=== PATIENT | male | born 1995 | race Caucasian/White ===

== ENCOUNTER 2018-08-24 08:03 | Emergency (ER) | payer OTHER ==
[2018-08-24] MEDS ORDERED: IBUPROFEN 600 MG TAB PO ONE (08:15)
--- NOTE | 2018-08-24 08:22 | EDPHY ---
H & P Time Seen by Provider: 08/24/18 08:11 HPI/ROS: CHIEF COMPLAINT: Left foot injury HISTORY OF PRESENT ILLNESS: Rolled it last night at 9:00 p.m.. Complains of pain in his left lateral foot but not in the ankle. Pain mild at rest but severe with any attempt to walk, can't walk on it. No knee or leg injuries. REVIEW OF SYSTEMS: Bruising but no laceration PAST MEDICAL HISTORY: Tonsillectomy, appendectomy, anxiety and depression. Social history: Smoker General Appearance: Alert and conversant, cooperative. Normal motor sensory and dorsalis pedis pulse in the foot. Lateral ecchymosis and swelling and tenderness over the base of the 5th metatarsal. Achilles and calcaneus nontender. No laceration. Medial and lateral malleoli are nontender, tibia and fibula nontender, lower leg compartments are soft. Emergency Department course/MDM: Ice, ibuprofen 600, foot x-ray on the left side. X-rays reviewed with the patient on the computer. Procedure: Splint placement. A left leg posterior Ortho Glass splint was applied. After application of the splint I returned and re-examined the patient. The splint was adequately immobilizing the joint and distal to the splint the patient's circulation and sensation was intact. Smoking Status: Current some day smoker Constitutional: Initial Vital Signs Temperature (C) 36.3 C 08/24/18 08:08 Heart Rate 102 H 08/24/18 08:08 Respiratory Rate 18 08/24/18 08:08 Blood Pressure 146/70 H 08/24/18 08:08 O2 Sat (%) 94 08/24/18 08:08 O2 Delivery Mode Room Air Allergies/Adverse Reactions: amoxicillin Allergy (Verified 08/24/18 08:08) Home Medications: Medication Instructions Recorded Sertraline HCl [Zoloft] 50 mg PO DAILY 05/18/15 clonazePAM [KlonOPIN] 0.5 mg PO DAILY PRN 05/18/15 clonazePAM [klonoPIN (*)] 1 mg PO TID PRN #12 tab 05/21/15 lamoTRIgine [LaMICtal] 25 mg PO DAILY #30 tab 05/21/15 MDM/Departure - MDM Imaging Results: Imaging Impressions Foot X-Ray 08/24/18 08:15 Impression: Fifth metatarsal base fracture consistent with peroneus brevis avulsion. Imaging: I viewed and interpreted images myself Medications Given: Discontinued Medications Acetaminophen (Tylenol) 1,000 mg PO EDNOW ONE Stop: 08/24/18 09:11 Last Admin: 08/24/18 09:11 Dose: 1,000 mg Ibuprofen (Motrin) 600 mg PO EDNOW ONE Stop: 08/24/18 08:16 Last Admin: 08/24/18 08:19 Dose: 600 mg - Depart Disposition: Home, Routine, Self-Care Clinical Impression: Fracture of fifth metatarsal bone of left foot Qualifiers: Encounter type: initial encounter Fracture type: closed Fracture alignment: nondisplaced Qualified Code(s): S92.355A - Nondisplaced fracture of fifth metatarsal bone, left foot, initial encounter for closed fracture Condition: Good Instructions: Foot Fracture in Adults (ED) Additional Instructions: Use crutches, nonweightbearing, follow-up with Orthopedics later this week in the office. Referrals: Nando Owens MD [Medical Doctor] - As per Instructions
[2018-08-24] MEDS ORDERED: ACETAMINOPHEN 500 MG TAB PO ONE (09:10)
[2018-08-24] MEDS ORDERED: ACETAMINOPHEN 500 MG TAB ONE (09:11)
[2018-08-24 09:21] VITALS: BP 110/74
== END 2018-08-24 09:30 | disposition home or self-care (01) ==
PROC: 2W3RX1Z Immobilization of Left Lower Leg using Splint (ICD-10-PCS; principal; 2018-08-24)
DX: S92.352A Displaced fracture of fifth metatarsal bone, left foot, initial encounter for closed fracture (principal); X50.1XXA Overexertion from prolonged static or awkward postures, initial encounter; Y92.9 Unspecified place or not applicable; Y93.9 Activity, unspecified; Y99.9 Unspecified external cause status; Z87.891 Personal history of nicotine dependence

== ENCOUNTER 2018-10-26 19:02 | Emergency (ER) | payer OTHER ==
--- NOTE | 2018-10-26 20:10 | EDPHY ---
General - History Smoking Status: Current some day smoker Time Seen by Provider: 10/26/18 20:09 Narrative: CLINICAL IMPRESSION: Skateboard accident, abrasions of multiple sites, left hand pain, left great toe pain ASSESSMENT/PLAN: Patient is a 23-year-old male who was traveling approximately 15-20 when he lost control on his skateboard causing him to fall, presents with multiple complaints. On initial examination the patient is shaking, very anxious and mildly diaphoretic and tachycardic. Patient noted to have multiple abrasions lateral and inferior to left eye with surrounding ecchymosis in orbital tenderness. His neurological exam is grossly normal with no focal deficit. His lungs were clear to auscultation bilaterally, oxygen saturation was 96% on room air, abrasions in tenderness noted across anterior chest. His abdomen was soft tender in the left lower quadrant, large abrasion overlying the left hip. CT head revealed no evidence of skull fracture, facial fracture or intracranial hemorrhage. CT chest revealed mild compression fractures of T3 through 5, he was nontender at this site and I suspect these are old. CT abdomen and pelvis were negative for acute abnormalities. Bilateral hand x-rays with no evidence of acute fracture, left foot with base of the 5th metatarsal fracture. Overall the patient had a very reassuring workup in the emergency department. After pain control, the patient was much more comfortable appearing in his heart rate normalized into the 80s. There were no findings to suggest traumatic head injury, traumatic intrathoracic or intra-abdominal injury, pelvic fracture, long bone fracture, compartment syndrome or neurovascular compromise. Patient with no midline spinal tenderness to palpation, there were no clinical findings to suggest traumatic spinal injury or cauda equina syndrome. On secondary assessment patient only complains of left palm pain and left great toe pain, no additional injuries were identified and he remains neurovascularly intact. The fracture noted at his 5th left metatarsal occurred 1 month prior, denies any significant pain at this location. History and physical examination is consistent with abrasions of multiple sites, left hand pain and left great toe pain. On repeat examination and prior to discharge he was able to ambulate without difficulty, he was very reassured by his workup in reports he is feeling much better. He was placed in a Velcro wrist splint, he is well established with his orthopedic surgeon and will call to schedule follow -up for repeat examination. Patient does not have a primary care provider, I have provided a referral for him to establish care. Return precautions were discussed-patient to return to the emergency Department for significantly worsening or uncontrolled pain, midline neck or back pain, chest pain, shortness of breath, abdominal pain or for any other concerning symptom. Patient verbalizes understanding and he is in agreement with plan. DIFFERENTIAL DX: Head injury including but not limited to concussion, skull fracture, intraparenchymal contusion, subarachnoid, subdural and epidural hematoma. Other differential diagnoses considered include but not limited to and in no particular order facial fracture, long bone fracture, intrathoracic traumatic injury, intra-abdominal traumatic injury, compartment syndrome ED PROCEDURES: Procedure: Splint placement. A Velcro wrist splint was applied. After application of the splint I returned and re-examined the patient. The splint was adequately immobilizing the joint and distal to the splint the patient's circulation and sensation was intact. ED COURSE: 2031: Discussed with Dr. Vila 2130: On repeat examination the patient is much more comfortable appearing, he reports that he is feeling better. Still complains of mild left lower quadrant and left hip pain. 2132: X-rays reviewed, bilateral hands without evidence of a fracture. Left foot with base of the 5th metatarsal fracture- this fracture is actually old upon further discussion with the patient. 2244: Discussed with radiologist CT head, chest, abdomen and pelvis CHIEF COMPLAINT: Skateboard accident, multiple complaints HPI: Patient is a 23-year-old male who presents to the emergency department after sustaining a fall off of his skateboard. Patient reports he was traveling 15- 20 mph downhill when he started wobbling ultimately losing control falling onto his left side. He did hit his head, he denies any loss of consciousness. He complains of left-sided facial pain, chest wall pain, left lower abdomen pain, left hip pain, left hand pain, right pinky pain and left great toe pain. Patient was able to get up and walk away, initially reports feeling okay however started to experience increased generalized pain. He denies any headache, eye pain, dizziness or focal weakness. He has had no altered mentation, retrograde amnesia, vomiting or posttraumatic seizure. He denies any midline neck or back pain. He denies any numbness or tingling of extremities. He has been able to ambulate without difficulty however this does increase the pain at the left great toe. Patient denies saddle paresthesias, lower extremity numbness, tingling, major motor weakness, urinary retention or bowel/bladder incontinence. He has not tried taking anything for pain. PMH: Denies Family History: Not contributory Social History: Regular alcohol, current smoker REVIEW OF SYSTEMS: All other systems negative Constitutional: No fever, no chills, appetite change. Eyes: No discharge, vision change ENT: No sore throat, congestion, ear pain. Cardiovascular: Chest wall pain, no palpitations. Respiratory: No cough, no shortness of breath. Gastrointestinal: Abdominal pain, no vomiting or diarrhea. Genitourinary: No hematuria, dysuria, flank pain, pelvic pain. Musculoskeletal: No back pain, joint swelling, joint pain, myalgias. Skin: No rashes, color change. Neurological: No headache, dizziness, weakness. PHYSICAL EXAM: General Appearance: Alert, very uncomfortable appearing, shaking. HENT: Normocephalic. Abrasions noted left lateral and inferior orbit with associated ecchymosis. Patient is tender to palpation along the inferior left orbit. Bilateral external ears are normal. Bilateral tympanic membranes are normal with pearly perez reflex, no evidence of hemotympanum. No Napoles sign or raccoon eyes. Nares are clear, mucosa is pink. Oropharynx is clear, uvula is midline. There is no tonsillar enlargement or exudate. The dentition is normal. Eyes: PERRLA, no acute vision change, nystagmus, swelling, discharge, pain or photosensitivity. Conjunctiva pink, no pallor or injection. Neck: Supple, nontender, no lymphadenopathy, no midline pain, FROM. No step- off or deformity. Back: No step-off, palpable bony abnormality, edema, erythema or ecchymosis of the cervical, thoracic or lumbar spines. Patient has no midline tenderness to palpation of the thoracic or lumbar spines. Full range of motion of all spines. 5/5 and equal strength of the UEs and LEs bilaterally including shoulder shrug. Pulses: 2+ and equal radial, DP and PT pulses bilaterally. Sensation intact and symmetric to light touch from face, UEs and LEs bilaterally. Respiratory: There are no retractions, lungs are clear to auscultation. There are abrasions noted to the right upper chest and left lower chest. Tenderness to palpation generalized chest. Cardiac: Tachycardic, no murmurs or gallops. Gastrointestinal: Abdomen is soft, bowel sounds normal, no masses/hernia. Patient is tender in the left mid and lower quadrant. no rigidity, guarding or focal peritoneal findings. Neurological: Alert and oriented x 3, CN 2-12 grossly intact, normal gait no ataxia, DTR's intact, normal sensation and strength Skin: Warm, dry. Upper Extremities: Bilateral shoulders are nontender with full range of motion. Bilateral elbows are nontender with full range of motion. Patient has a large abrasion along the ulnar aspect of his left forearm. Forearm compartment is soft. Patient is tender along the 5th metacarpal of the left hand, abrasion noted to the lateral left 5th digit. Wrist is nontender, hand is nontender. Right upper extremity reveals abrasions noted to the right hand, tenderness along the lateral right 5th digit without deformity. The radial, ulnar and median nerves were all tested bilaterally. Radial nerve: Patient is able to extend wrist and fingers of the local joints. Ulnar nerve: Patient is able to abduct all fingers. Median nerve patient is able to oppose thumb to pinky. Intact distal pulses, Full range of motion intact, no tenderness, no ecchymosis or edema Lower Extremities: Pelvis is stable and nontender. Bilateral thighs are soft, nontender. Bilateral knees are nontender with full range of motion. Left foot with edema and tenderness of the left great toe, limited mobility secondary to pain. Psychiatric: Patient is oriented X 3, there is no agitation. MEDICAL DECISION MAKING: Patient was seen independently. Secondary supervising physician at time of evaluation was Dr. Vila, he did not evaluate this patient however we discussed case and plan of care. Diagnosis: Multiple abrasions, left hand pain, left great toe pain. New, requires workup Summary: See Assessment and Plan for summary of ED visit Clinical lab tests: ordered / reviewed. Independent visualization of images, tracing, or specimens: Yes. Decision to obtain medical records or history from someone other than the patient: No Review / Summarize previous medical records: Yes Discussed patient with another provider: Yes Dr. Vila and Dr. Simms Patient Progress: Stable, discharge. (Rachel Noble) Medical Decision Making: PHYSICIAN DOCUMENTATION: The patient was evaluated and managed by the Physician Count Team Member. My co- signature indicates that I have reviewed this chart and I agree with the findings and plan of care as documented. I am the secondary supervising physician. (Francois Vila) - Diagnostics Imaging Results: Imaging Impressions Hand X-Ray 10/26/18 00:00 Impression: Nondisplaced fracture through the base of the fifth metatarsal. 2. Right Hand, Three Views History: Pain post trauma. Fall skateboarding. Findings: No fracture or dislocation is identified. Impression: Nothing acute identified. 3. Left Hand, Three Views History: Pain post trauma. Fall skateboarding. Findings: No fracture or dislocation is identified. Impression: Nothing acute identified. Abdomen CT 10/26/18 20:27 Impression: Mild compressions of T3, T4 and T5 of unknown chronicity. Correlation with the site of symptoms is recommended. 2. CT Scan of the Abdomen and Pelvis (With Contrast, extended study), 22:04 Clinical Indications: Trauma. Fall off skateboard. Technique: 90 mL of Isovue 300 were given intravenously by machine power injection. Multidetector helical CT imaging was performed from the diaphragm to the symphysis pubis during the arterial phase and then repeated during the portal venous phase to assess for delayed bleeding. Dose reduction techniques were utilized. Findings: Abdomen: The liver and spleen are normal without evidence of laceration or subcapsular hematoma formation. The gallbladder and pancreas look normal. The kidneys do not show evidence for laceration, cortical contusion, or obstruction. There is no free air or free fluid. Incidentally noted are 2 small splenunculi adjacent to the spleen. Pelvis: The urinary bladder is unremarkable. No free fluid in the pelvis. Bowel loops are normal. Bone window evaluation: No lumbar fracture is identified. The pelvic ring and hips are intact. Impression: No acute posttraumatic abnormality identified. Results called to Rachel Noble. Final results are concordant with the preliminary interpretation. General information for patients regarding this examination can be found at [employer]. If you have questions or comments about this report, please contact me at (hospital) or [phone] (cell). Chest CT 10/26/18 20:27 Impression: Mild compressions of T3, T4 and T5 of unknown chronicity. Correlation with the site of symptoms is recommended. 2. CT Scan of the Abdomen and Pelvis (With Contrast, extended study), 22:04 Clinical Indications: Trauma. Fall off skateboard. Technique: 90 mL of Isovue 300 were given intravenously by machine power injection. Multidetector helical CT imaging was performed from the diaphragm to the symphysis pubis during the arterial phase and then repeated during the portal venous phase to assess for delayed bleeding. Dose reduction techniques were utilized. Findings: Abdomen: The liver and spleen are normal without evidence of laceration or subcapsular hematoma formation. The gallbladder and pancreas look normal. The kidneys do not show evidence for laceration, cortical contusion, or obstruction. There is no free air or free fluid. Incidentally noted are 2 small splenunculi adjacent to the spleen. Pelvis: The urinary bladder is unremarkable. No free fluid in the pelvis. Bowel loops are normal. Bone window evaluation: No lumbar fracture is identified. The pelvic ring and hips are intact. Impression: No acute posttraumatic abnormality identified. Results called to Rachel Noble. Final results are concordant with the preliminary interpretation. General information for patients regarding this examination can be found at [employer]. If you have questions or comments about this report, please contact me at ([facility]) or [phone] (cell). Head CT 10/26/18 20:27 Impression: Head CT within normal limits. Results called to Rachel Noble. General information for patients regarding this examination can be found at [employer]. If you have questions or comments about this report, please contact me at [phone] (hospital) or [phone] (cell). Foot X-Ray 10/26/18 20:28 Impression: Nondisplaced fracture through the base of the fifth metatarsal. 2. Right Hand, Three Views History: Pain post trauma. Fall skateboarding. Findings: No fracture or dislocation is identified. Impression: Nothing acute identified. 3. Left Hand, Three Views History: Pain post trauma. Fall skateboarding. Findings: No fracture or dislocation is identified. Impression: Nothing acute identified. Hand X-Ray 10/26/18 20:28 Impression: Nondisplaced fracture through the base of the fifth metatarsal. 2. Right Hand, Three Views History: Pain post trauma. Fall skateboarding. Findings: No fracture or dislocation is identified. Impression: Nothing acute identified. 3. Left Hand, Three Views History: Pain post trauma. Fall skateboarding. Findings: No fracture or dislocation is identified. Impression: Nothing acute identified. - Objective Vital Signs: Initial Vital Signs Temperature (C) 36.6 C 10/26/18 19:06 Heart Rate 125 H 10/26/18 19:06 Respiratory Rate 18 10/26/18 19:06 Blood Pressure 178/110 H 10/26/18 19:06 O2 Sat (%) 97 10/26/18 19:06 O2 Delivery Mode Room Air Allergies/Adverse Reactions: amoxicillin Allergy (Verified 10/26/18 19:09) Laboratory Results: 10/26/18 20:37 POC Hgb 18.0 gm/dL H gm/dL (13.7-17.5) POC Hct 53 % H % (40-51) POC Sodium 143 mEq/L mEq/L (135-145) POC Potassium 3.2 mEq/L L mEq/L (3.3-5.0) POC Chloride 105 mEq/L mEq/L (97-110) POC Total CO2 21 mEq/L L mEq/L (22-31) POC BUN 9 mg/dL mg/dL (7-23) POC Creatinine 1.0 mg/dL mg/dL (0.7-1.3) POC Glucose 99 mg/dL mg/dL (70-100) Medications Given: Discontinued Medications Hydromorphone HCl (Dilaudid) 0.5 mg IVP EDNOW ONE Stop: 10/26/18 20:29 Last Admin: 10/26/18 20:52 Dose: 0.5 mg Hydromorphone HCl (Dilaudid) 0.5 mg IVP EDNOW ONE Stop: 10/26/18 21:35 Last Admin: 10/26/18 21:53 Dose: 0.5 mg Sodium Chloride (Ns) 1,000 mls @ 0 mls/hr IV ONCE ONE PRN Reason: Wide Open Stop: 10/26/18 20:29 Last Admin: 10/26/18 20:52 Dose: 1,000 mls Tetracaine/Epinephrine/Lidocaine (Let Gel Topical) 1 ea TP EDNOW ONE Stop: 10/26/18 21:31 Last Admin: 10/26/18 21:53 Dose: 1 ea Point of Care Test Results: Chemistry 10/26/18 20:37 POC Sodium 143 mEq/L mEq/L (135-145) POC Potassium 3.2 mEq/L L mEq/L (3.3-5.0) POC Chloride 105 mEq/L mEq/L (97-110) POC Total CO2 21 mEq/L L mEq/L (22-31) POC BUN 9 mg/dL mg/dL (7-23) POC Creatinine 1.0 mg/dL mg/dL (0.7-1.3) POC Glucose 99 mg/dL mg/dL (70-100) ISTAT H&H 10/26/18 20:37 POC Hgb 18.0 gm/dL H gm/dL (13.7-17.5) POC Hct 53 % H % (40-51) Departure - Departure Disposition: Home, Routine, Self-Care Clinical Impression: Abrasion, multiple sites, Left hand pain, Pain of left great toe Condition: Good Instructions: Additional Information Additional Instructions: DISCHARGE INSTRUCTIONS FROM YOUR DOCTOR Thank you for visiting our emergency department today. Please keep in mind that discharge from the emergency department does not mean that there is nothing wrong - it simply means that we have not identified an emergency condition that requires further evaluation or treatment in the hospital. You should always plan to follow up with primary care for re-evaluation of your condition in the next 2-3 days. Keep wounds clean and dry for 24 hours. Clean at least twice daily or when soiled with soap and water, apply antibiotic ointment and dressing. Rest, ice (on and off), elevate the wrist and hand as possible above the level of the heart to decrease pain and swelling. Wear the splint as applied for comfort, follow up with Orthopedic surgery as we discussed. For pain control: You may take Tylenol, I recommend 500-1000 mg every 6-8 hours as needed. Take with food and a full glass of water. Stop taking if this is upsetting her stomach. Do not exceed 4000 mg in a 24 hr period. You may also take ibuprofen, recommend 400 mg every 6 hr. Take with food and a full glass of water. Stop taking if this upsets her stomach. Do not exceed 2400 mg in a 24 hr period. Continue your regular medications as prescribed. Return for increased pain or swelling, numbness, tingling or weakness of the fingers, discoloration of the fingers, fever,inability to move your fingers or any other new, worsening or worrisome symptoms. People present with illnesses and injuries in different ways, and it is always possible that we have missed something. You may always return for re-evaluation if symptoms worsen or if they are not improving or if you develop new/different symptoms. Again, thank you for choosing our emergency department. We hope that you feel better. Referrals: Carin Roman MD [Medical Doctor] - As per Instructions
[2018-10-26] MEDS ORDERED: HYDROmorphONE/DILAUDID 2 MG/ML INJ IVP ONE ×2 (20:28→21:34)
[2018-10-26] MEDS ORDERED: NS 1,000 ML IV ONE (20:28)
[2018-10-26] MEDS ORDERED: LET GEL TOPICAL 1 EA SYR TP ONE (21:30)
[2018-10-26] MEDS ORDERED: HYDROmorphONE/DILAUDID 1 MG/ML INJ ONE (21:48)
[2018-10-26] MEDS ORDERED: IOPAMIDOL (ISOVUE-300) 100 ML BTL ONE (21:49)
[2018-10-26 23:19] VITALS: BP 135/88
== END 2018-10-26 23:18 | disposition home or self-care (01) ==
DX: S92.355A Nondisplaced fracture of fifth metatarsal bone, left foot, initial encounter for closed fracture (principal); S22.030A Wedge compression fracture of third thoracic vertebra, initial encounter for closed fracture; S22.040A Wedge compression fracture of fourth thoracic vertebra, initial encounter for closed fracture; S22.050A Wedge compression fracture of T5-T6 vertebra, initial encounter for closed fracture; S00.212A Abrasion of left eyelid and periocular area, initial encounter; S20.311A Abrasion of right front wall of thorax, initial encounter; S70.212A Abrasion, left hip, initial encounter; S50.812A Abrasion of left forearm, initial encounter; S60.417A Abrasion of left little finger, initial encounter; V00.131A Fall from skateboard, initial encounter; Y93.51 Activity, roller skating (inline) and skateboarding
CPT/HCPCS: 82435-PO; 82565-PO; 82947-PO; 84132-PO; 84295-PO; 84520-PO; 85014-ER; 96374; J1170; L3807; Q9967